=== PATIENT | male | born 1960 | race Caucasian/White ===

== ENCOUNTER 2019-01-27 12:18 | Inpatient (IN) | payer OTHER ==
[~2019-01-27] VITALS: Ht 182.9 cm; Wt 87.1 kg
[~2019-01-27 12:18] MED LIST: LEVAQUIN 750 M750 MG PO; MEDROLDOSEPACK PO; NOHOMEMEDICATIONS; VENTOLIN HFA 1818 GM INH
[2019-01-27 12:19] VITALS: BP 169/89
[2019-01-27] MEDS ORDERED: BAYER CHEWABLE81 MG PO (12:22)
[2019-01-27 12:38] LABS: ABSOLUTE EOSINOPHILS 0.1 thou/uL (0.0-0.7); ABSOLUTE LYMPHOCYTES 4.2 thou/uL (0.8-5.3); ABSOLUTE MONOCYTES 0.7 thou/uL (0.0-1.2); ABSOLUTE NEUTROPHILS 4.3 thou/uL (1.6-8.1); BASOPHILS 0.3 %; EOSINOPHILS 1.2 %; HEMATOCRIT 38.2 % (42.0-52.0); LYMPHOCYTES 44.6 %; MCH 28.2 pg (26.0-34.0); MCV 83.1 fL (80.0-100.0); MONOCYTES 7.5 %; MPV 8.4 fl. (7.2-11.1); NUCLEATED RBCS 0 /100WBC; PLATELET COUNT* 161 thou/uL (150-400); POLYS 46.4 %; WBC 9.4 thou/uL (4.0-11.0)
[2019-01-27 12:58] LABS: ANION GAP 11 mmol/L (7-16); BUN 17 mg/dL (7-18); CALCIUM 9.5 mg/dL (8.5-10.1); CHLORIDE 103 mmol/L (98-107); CO2 25 mmol/L (21-32); CREATININE 0.8 mg/dL (0.6-1.3); GLUCOSE 147 mg/dL (70-99); POTASSIUM 3.9 mmol/L (3.5-5.1); SODIUM 139 mmol/L (136-145); TROPONIN-I LEVEL <0.06 ng/mL (<0.06)
[2019-01-27 12:59] LABS: ALBUMIN 3.9 g/dL (3.4-5.0); ALKALINE PHOSPHATASE 164 U/L (46-116); LIPASE 107 U/L (73-393); MAGNESIUM 1.7 mg/dL (1.8-2.4); NT-PRO BRAIN NAT PEPTIDE 241 pg/mL (<300); SGOT 31 U/L (15-37); SGPT 32 U/L (30-65); TOTAL BILIRUBIN 1.5 mg/dL (<0.1-1.0); TOTAL PROTEIN 7.6 g/dL (6.4-8.2)
--- NOTE | 2019-01-27 13:00 | NUR ---
THIS NURSE RECEIVED REPORT FROM SHANNAN ERICKSON. THIS NURSE TO ASSUME PT CARE AT THIS TIME.
--- NOTE | 2019-01-27 13:17 | NUR ---
DR. GARCIA AT BEDSIDE TALKING WITH PT.
--- NOTE | 2019-01-27 14:01 | NUR ---
PT BACK FROM RADIOLOGY VIA STRETCHER BY [employer]. REATTACHED TO MONITORS.
--- NOTE | 2019-01-27 15:38 | NUR ---
REPORT GIVEN TO INPATIENT NURSE, PATRICIA, WHO IS TO ASSUME PT CARE. SHANNAN GOMEZ MADE AWARE THAT PT WAS IN US AND THIS NURSE WOULD TAKE PT TO INPATIENT ROOM WHEN PT GOT BACK FROM US. SHANNAN GOMEZ STATED UNDERSTANDING. PT LEFT ER WITH PT BELONGINGS. NURSE CALLED PT AND NOTIFIED HER OF PT ROOM NUMBER.
[2019-01-27 15:41] VITALS: BP 130/80
[2019-01-27 16:33] VITALS: BP 137/79
--- NOTE | 2019-01-27 16:48 | NUR ---
PT ADMITTED TO UNIT AROUND 1600 PT IS ALERT AND ORIENTED X 4 PT DENIES PAIN OR SOA ON RA, PT STATES HEART PALPATATIONS ARE LESS FREQUENT, PT IS UP AD BETZY PT IS NOT A FALL RISK, PT IS AFIB ON THE MONITOR, PT WILL BE NPO AT MIDNIGHT [facility]PR CARDIOLOGY CONSULT, WILL CONTINUE TO MONITOR
[2019-01-27 18:22] VITALS: BP 128/76
[2019-01-27 20:00] VITALS: BP 122/74
[2019-01-28] VITALS: BP 110/71; BP 99/66
[2019-01-28 04:00] VITALS: BP 112/56
[2019-01-28 05:16] LABS: ABSOLUTE EOSINOPHILS 0.1 thou/uL (0.0-0.7); ABSOLUTE LYMPHOCYTES 2.8 thou/uL (0.8-5.3); ABSOLUTE MONOCYTES 0.7 thou/uL (0.0-1.2); ABSOLUTE NEUTROPHILS 2.9 thou/uL (1.6-8.1); BASOPHILS 0.3 %; EOSINOPHILS 1.9 %; HEMATOCRIT 41.1 % (42.0-52.0); HEMOGLOBIN 14.1 gm/dL (14.0-18.0); LYMPHOCYTES 42.6 %; MCH 28.2 pg (26.0-34.0); MCHC 34.2 g/dL (28.0-37.0); MCV 82.4 fL (80.0-100.0); MONOCYTES 11.2 %; NUCLEATED RBCS 0 /100WBC; PLATELET COUNT* 163 thou/uL (150-400); RBC 4.99 mil/uL (4.50-6.00); RDW-CV 14.1 % (10.5-14.5); WBC 6.5 thou/uL (4.0-11.0)
[2019-01-28 05:21] LABS: CALCIUM 8.7 mg/dL (8.5-10.1); CREATININE 0.5 mg/dL (0.6-1.3); POTASSIUM 3.8 mmol/L (3.5-5.1)
--- NOTE | 2019-01-28 05:25 | NUR ---
ASSUMED CARE OF PT AFTER REPORT AT 1930. PT A&OX4. VSS. PHYSICAL ASSESSMENT COMPLETED AND CHARTED. PT ON RA. PT TRACING AFIB ON TELE. MAINTAINED ON CARDIZEM DRIP AT 5MG/HR. PT UPADLIB TO RESTROOM. PT COMPLAINED OF HEADACHE- PAIN MEDS GIVEN PER NOV. PT RESTED WELL ON BED. HOURLY ROUNDING OBSERVED. CALL LIGHT WITHIN REACH.
[2019-01-28 08:00] VITALS: BP 124/76
--- NOTE | 2019-01-28 10:18 | NUR ---
ASSUMED PT CARE AT 0700 PT IS ALERT AND ORIENTED X 4 PT DENIES PAIN OR SOA ON RA, PT IS UP AD BETZY PT IS NOT A FALL RISK, PT IS AFIB ON THE MONITOR, PT HEART RATE THIS AM DROPPED TO 40'S STOPPED CARDIZEM DRIP PT HEART RATE IMPROVED, PT IS CLEARED TO DISCHARGE AFTER LUNCH PER CARDIOLOGY WHO WANTS PT TO HAVE A DOSE PO CARDIAZEM MOW MONITOR HEART RATE, WILL CONTINUE TO MONITOR
[2019-01-28] MEDS ORDERED: TYLENOL325 MG PO (10:30)
[2019-01-28 10:31] VITALS: BP 124/76
[2019-01-28] MEDS ORDERED: CARDIZEM CD120 MG PO (10:31)
[2019-01-28 11:29] VITALS: BP 124/76
--- NOTE | 2019-01-28 11:38 | NUR ---
PT ARRIVED ON THE UNIT FROM ER AT 11:00. ASSESSED PT AND DOCUMENTED. PT IS ON CARDIAC MONITER TRACING SR 1ST DEGREE BBB HR 63. HE IS A&O WITH NO C/O PAIN. VSS WNL. PT IS AFEBRILE. PT IS NPO PENDING CARDIO CONSULT. PT IS UP WITH A CANE AND STEADY. PT RIGHTS AND FALL AGREEMENT SIGNED. PT ON FALL PRECAUTIONS PER FACILITY PROTOCOL. HE IS WEARING SCDS. PT IS ON 2L OF 02 SAT 95%. LUNGS ARE CLEAR. BED IS IN LOW POSITION CALL LIGHT IS IN REACH. WM.
[2019-01-28 12:12] VITALS: BP 123/74
--- NOTE | 2019-01-28 13:41 | EKG ---
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
--- NOTE | 2019-01-28 13:46 | EKG ---
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
--- NOTE | 2019-01-29 14:38 | CON ---
[address] [address] CONSULTATION Name: ЕКАТЕРИНА CANALES Room: [address] IN ..#: [id number] Admission: 01/27/19 Attend Phys: Donnell Payan MD Discharge: 01/28/19 Date of : 60 Report #: [id number] THIS REPORT FOR: //name// CC: Donnell Payan [facility] physician/PCP DATE OF SERVICE: 01/27/2019 CARDIOLOGY CONSULTATION HISTORY OF PRESENT ILLNESS: The patient is a 58-year-old white male who I was asked to see in the hospital today after he was noted to be in atrial fibrillation. The patient has no previous history of heart disease. He does note that he had a stress test in the past. Every so often, he has episodes that he feels lightheaded, diaphoretic and short of breath, this will resolve. However, today, he was at home when he felt his heart beating irregularly. He felt somewhat short of breath, diaphoretic and lightheaded. He came to the hospital and found to be in atrial fibrillation. He was started on IV Cardizem and I was asked to see him for further evaluation and treatment. He denies a history of a heart murmur. Denies exertional chest pain, shortness of breath or syncope. He has had no peripheral edema. He denied any bleeding problem. PAST MEDICAL HISTORY: He has had previous surgery on his leg following an accident. MEDICATIONS: He is currently on no medications. ALLERGIES: He has no known drug allergies. FAMILY HISTORY: His father had atrial fibrillation and a pacemaker. SOCIAL HISTORY: He is . He and his live in [place]. He works at an [employer] shop. He quit smoking in the past. He does have several drinks occasionally including 4 last night of whiskey. No illicit drug use. REVIEW OF SYSTEMS: He has had no history of stroke, asthma, peptic ulcer disease, liver disease, kidney disease, cancer, psychiatric illness. He does wear glasses. PHYSICAL EXAMINATION: GENERAL: A middle-aged male, lying in bed, appeared in no distress. VITAL SIGNS: Blood pressure is 130/70, pulse is 100 and irregular. He is afebrile. HEENT: He is anicteric. Conjunctivae pink. Mucous members moist. NECK: Neck veins do not appear distended. No carotid bruits. Neck supple. CHEST: [place] [address] CONSULTATION Name: ЕКАТЕРИНА CANALES Jesus Alberto Room: [address]#: [id number] Admission: 01/27/19 Attend Phys: Donnell Payan MD Discharge: 01/28/19 Date of : 60 Report #: [id number] CARDIOVASCULAR: Irregular rhythm. ABDOMEN: Soft. EXTREMITIES: Had no edema. Posterior tibial pulse 2+ bilaterally. SKIN: Warm, dry. NEUROLOGIC: Nonfocal. ECG showed atrial fibrillation with an increased ventricular response rate. His workup in the Emergency Room today, he had a portable chest x-ray that showed normal heart size and clear lung quiroz. LABORATORY DATA: Today, sodium 139, creatinine 0.8, glucose 147, bilirubin 1.5, alkaline phosphatase 164, albumin 3.9. Troponin 0.06. BNP 241. White blood cell count 9.4, hemoglobin 13. IMPRESSION AND RECOMMENDATIONS: 1. Atrial fibrillation. Recommend echocardiogram and thyroid function studies. I will recommend starting flecainide. If he fails to convert, he may require cardioversion. The patient appears to have a CHADS score of 0, so I would not recommend anticoagulation at this time. 2. Elevated blood sugar. I would rule out diabetes. <ELECTRONICALLY SIGNED> By: Vic Metcalf MD, FACC 01/29/19 1438 1327 0651Vic Metcalf MD, FACC /nt
== END 2019-01-28 13:20 | disposition home or self-care (01) | DRG 310 ==
LOC: M.ERS 12:18 → M.TBA-ER 13:25 → M.2W 16:22
PROVIDERS: Personal Emergency Response Attendant; ADMIT Internal Medicine
DX: I48.91 Unspecified atrial fibrillation (principal); R73.9 Hyperglycemia, unspecified; E05.90 Thyrotoxicosis, unspecified without thyrotoxic crisis or storm; Z79.899 Other long term (current) drug therapy; Z82.49 Family history of ischemic heart disease and other diseases of the circulatory system

== ENCOUNTER 2019-08-20 13:29 | Emergency (ER) | payer OTHER ==
[~2019-08-20] VITALS: Ht 182.9 cm; Wt 88.5 kg
[~2019-08-20 13:29] MED LIST changes: +BAYER CHEWABLE81 MG PO; +CARDIZEM CD120 MG PO; +TYLENOL325 MG PO
[2019-08-20] MEDS ORDERED: HYPERTHYROID MED (13:48)
[2019-08-20 15:59] LABS: URINE BILIRUBIN NEGATIVE (Negative); URINE BLOOD NEGATIVE (Negative); URINE CLARITY CLEAR; URINE COLOR YELLOW; URINE GLUCOSE-RANDOM NEGATIVE (Negative); URINE KETONES NEGATIVE (Negative); URINE LEUKOCYTES-REFLEX NEGATIVE (Negative); URINE NITRITE-REFLEX NEGATIVE (Negative); URINE PROTEIN NEGATIVE (Negative); URINE SPECIFIC GRAVITY 1.015 (1.005-1.030); URINE UROBILINOGEN 0.2 E.U./dl (0.2-1.0)
[2019-08-20] MEDS ORDERED: NORCO 5-325 TA1 EAC1 PO (16:19)
[2019-08-20] MEDS ORDERED: ZANAFLEX4 MG PO (16:19)
[2019-08-20] MEDS ORDERED: NABUMETONE 750750 M1 PO (16:19)
[2019-08-20] MEDS ORDERED: MEDROLDOSEPACK PO (16:19)
[2019-08-20 16:51] VITALS: BP 109/72
== END 2019-08-20 16:50 | disposition home or self-care (01) ==
LOC: M.ERS 13:29
PROVIDERS: Nurse Practitioner Family
DX: M54.41 Lumbago with sciatica, right side (principal); M54.42 Lumbago with sciatica, left side; I48.91 Unspecified atrial fibrillation

== ENCOUNTER 2021-04-23 16:25 | Inpatient (IN) | payer OTHER ==
[~2021-04-23] VITALS: Ht 185.4 cm; Wt 85.9 kg
[~2021-04-23 16:25] MED LIST changes: +HYPERTHYROID MED; +NABUMETONE 750750 M1 PO; +NORCO 5-325 TA1 EAC1 PO; +ZANAFLEX4 MG PO
[2021-04-23 16:42] VITALS: BP 138/76
[2021-04-23 17:27] LABS: ABSOLUTE LYMPHOCYTES 0.6 thou/uL (0.8-5.3); ABSOLUTE MONOCYTES 0.5 thou/uL (0.0-1.2); ABSOLUTE NEUTROPHILS 4.6 thou/uL (1.6-8.1); BASOPHILS 0.2 %; EOSINOPHILS 0.1 %; HEMATOCRIT 45.7 % (42.0-52.0); HEMOGLOBIN 16.3 gm/dL (14.0-18.0); LYMPHOCYTES 10.5 %; MCH 30.9 pg (26.0-34.0); MCHC 35.8 g/dL (28.0-37.0); MCV 86.2 fL (80.0-100.0); MONOCYTES 8.2 %; MPV 6.8 fl. (7.2-11.1); NUCLEATED RBCS 0 /100WBC; PLATELET COUNT* 327 thou/uL (150-400); RBC 5.29 mil/uL (4.50-6.00); RDW-CV 12.9 % (10.5-14.5); WBC 5.7 thou/uL (4.0-11.0)
[2021-04-23 17:35] LABS: CALCIUM 8.7 mg/dL (8.5-10.1); CREATININE 0.8 mg/dL (0.6-1.3); POTASSIUM 4.3 mmol/L (3.5-5.1)
[2021-04-23 17:40] LABS: TOTAL BILIRUBIN 1.2 mg/dL (<0.1-1.0); TOTAL PROTEIN 7.7 g/dL (6.4-8.2)
[2021-04-24 01:30] VITALS: BP 115/74
[2021-04-24] MEDS ORDERED: TAPAZOLE5 MG PO (02:07)
[2021-04-24 02:09] VITALS: BP 113/74
[2021-04-24 04:16] VITALS: BP 115/67
--- NOTE | 2021-04-24 05:41 | NUR ---
PT ADMITTED TO ROOM 108 DURING THIS SHIFT; VSS, 8L O2, A+OX4, UP ADLIB BUT VERY SOA WITH EXERTION, SINUS RHYTHM, ON TELE. HE IS ABLE TO COMMUNICATE HIS NEEDS TO STAFF EFFECTIVELY. HE HAS DENIED THE NEED FOR PAIN MEDICATION UP TO THIS TIME. PULMONOLOGY CONSULTED. PT NOW ON NRB MASK AT 15L O2; TOLERATING WELL, SO FAR.
--- NOTE | 2021-04-24 10:37 | NUR ---
The patient requested to use his own supply of medication. MD contacted with his request.
--- NOTE | 2021-04-24 10:48 | NUR ---
kaye spk with pt via telephone d/t covid isolation precautions. pt lives home with his . pt is also sick and on her way to [facility]. pt asked that he and his could share rooms if she is admitted. pt is active and independent. pt uses no dmes. pt denies hx with hh or snf. pt's pcp is Matias Louise.
[2021-04-24 12:00] VITALS: BP 128/70
--- NOTE | 2021-04-24 14:48 | 2DMMODE ---
[place] [address] 2 D/M-MODE ECHOCARDIOGRAM Name: ЕКАТЕРИНА CANALES Room: [address] IN .R.#: [id number] Admission: 04/23/21 Attend Phys: Yang Castañeda Discharge: Date of : 60 Date of Service: 04/24/21 1447 Report #: [id number] THIS REPORT FOR: cc: FAM - No family physician/PCP FAM - No family physician/PCP Nestor Jones MD [facility] ~ APPROVED REPORT Study performed: 04/24/2021 13:48:01 EXAM: Comprehensive 2D, Doppler, and color-flow Echocardiogram Patient Location: Bedside BSA: 2.08 HR: 76 bpm BP: 128/70 mmHg Other Information Study Quality: Adequate Indications Dyspnea Covid Positive 2D Dimensions IVSd: 13.02 (7-11mm) LVOT Diam: 19.19 (18-24mm) LVDd: 48.84 mm PWd: 11.06 (7-11mm) Ascending Ao: 44.96 (22-36mm) LVDs: 28.05 (25-40mm) Aortic Root: 31.39 mm Volumes Left Atrial Volume (Systole) LA ESV Index: 29.00 mL/m2 Aortic Valve AoV Peak Adam.: 1.29 m/s AO Peak Gr.: 6.61 mmHg LVOT Max P.51 mmHg AO Mean Gr.: 3.44 mmHg LVOT Mean P.57 mmHg LVOT Max V: 0.94 m/s AO V2 VTI: 25.36 cm LVOT Mean V: 0.56 m/s TIN (VTI): 2.00 cm2 LVOT V1 VTI: 17.54 [place] [address] 2 D/M-MODE ECHOCARDIOGRAM Name: ЕКАТЕРИНА CANALES Room: [address] IN ..#: [id number] Admission: 04/23/21 Attend Phys: Yang Castañeda Discharge: Date of : 60 Date of Service: 04/24/21 1447 Report #: [id number] E/A Ratio: 1.07 MV Decel. Time: 329.44 ms MV E Max Adam.: 0.51 m/s MV PHT: 95.54 ms MVA (PHT): 2.30 cm2 TDI E/Lateral E': 3.92 E/Medial E': 4.64 Medial E' Adam.: 0.11 m/s Lateral E' Adam.: 0.13 m/s Pulmonary Valve PV Peak Adam.: 0.84 m/s PV Peak Gr.: 2.80 mmHg Tricuspid Valve RAP Estimate: 5.00 mmHg TR Peak Gr.: 8.04 mmHg RVSP: 13.04 mmHg PA Pressure: 13.04 mmHg Left Ventricle The left ventricle is normal size. There is normal LV segmental wall motion. There is normal left ventricular wall thickness. Left ventricular systolic function is normal. The left ventricular ejection fraction is within the normal range. LVEF is 60%. The left ventricular diastolic function is normal. Right Ventricle The right ventricle is normal size. The right ventricular systolic function is normal. Atria The left atrium size is normal. The right atrium size is normal. Aortic Valve The aortic valve is normal in structure. Trace aortic regurgitation. There is no aortic valvular stenosis. Mitral Valve The mitral valve is normal in structure. Trace mitral regurgitation. No evidence of mitral valve stenosis. Tricuspid Valve The tricuspid valve is normal in structure. [place] [address] 2 D/M-MODE ECHOCARDIOGRAM Name: ЕКАТЕРИНА CANALES Room: [address]#: [id number] Admission: 04/23/21 Attend Phys: Yang Castañeda Discharge: Date of : 60 Date of Service: 04/24/21 1447 Report #: [id number] Pulmonic Valve The pulmonary valve is normal in structure. There is no pulmonic valvular regurgitation. Great Vessels The aortic root is normal in size. IVC is not visualized. Pericardium There is no pericardial effusion. <Conclusion> The left ventricle is normal size. Left ventricular wall thickness is normal Left ventricular systolic function is normal. The left ventricular ejection fraction is within the normal range. LVEF is 60%. The left ventricular diastolic function is normal. The left atrium size is normal. The aortic valve is normal in structure. Trace aortic regurgitation. There is no aortic valvular stenosis. The mitral valve is normal in structure. The tricuspid valve is normal in structure. There is no pericardial effusion. There is normal LV segmental wall motion. <ELECTRONICALLY SIGNED> By: Nestor Jones MD, [facility] 04/24/21 1447 1447 1447 Nestor Jones MD, FACC /INF
--- NOTE | 2021-04-24 15:09 | EKG ---
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
[2021-04-24 16:00] VITALS: BP 103/59
[2021-04-24 21:14] VITALS: BP 114/69
[2021-04-25] VITALS (7 sets, daily range): BP systolic 101–127; BP diastolic 54–78
--- NOTE | 2021-04-25 05:46 | NUR ---
PT IS ABLE TO COMMUNICATE HIS NEEDS TO STAFF EFFECTIVELY. CURRERNT PAIN MEDICATION REGIMEN HAS BEEN ADEQUATE FOR CONTROLLING HIS PAIN UP TO THIS TIME. HHC O2 MAINTIANED. PT VERY SOA WITH EXERTION. HIS IS IN ROOM 115 AT THIS TIME.
[2021-04-25 06:16] LABS: CREATININE 0.8 mg/dL (0.6-1.3)
--- NOTE | 2021-04-25 20:05 | NUR ---
patient resting in room, in bed, call light within reach, A&O x 4, meds given per MAR, patient on O2 per respiratory, report given to shift leader nurse.
[2021-04-26] VITALS: BP 112/52
--- NOTE | 2021-04-26 03:10 | NUR ---
ASSUMED CARE OF PT AT 1900. PT IS ALERT AND ORIENTED. VSS. PERRLA. PT IS ON HEATED HIGH FLOW CANNULA. PT IS VERY HESITANT TO TAKE MEDICINE. PT IS IN A FIB ON THE TELEMETRY. PT IS RESTING COMFORTABLY IN BED. RESPIRATIONS ARE EVEN AND NONLABORED. WILL CONTINUE TO MONITOR PT.
[2021-04-26 04:00] VITALS: BP 108/62
--- NOTE | 2021-04-26 04:15 | NUR ---
PT IS BACK IN SINUS RYTHM
[2021-04-26 08:00] VITALS: BP 121/66
[2021-04-26 12:00] VITALS: BP 119/78
[2021-04-26 16:00] VITALS: BP 126/63
[2021-04-26 20:00] VITALS: BP 124/68
[2021-04-27 00:33] VITALS: BP 105/47
--- NOTE | 2021-04-27 04:11 | NUR ---
ASSUMED CARE OF PT AT 1900. PT IS ALERT AND ORIENTED. VSS. PERRLA. NO COMPLAINTS OF PAIN. UP WITH STAND BY ASSIST. PT IS ON A 100 PERCENT FIO2. PT IS SLEEPING QUIETLY IN BED. RESPIRATIONS ARE EVEN AND NONLABORED. WILL CONTINUE TO MONITOR PT.
[2021-04-27 05:45] VITALS: BP 101/47
[2021-04-27 08:36] LABS: CALCIUM 8.6 mg/dL (8.5-10.1); CREATININE 0.8 mg/dL (0.6-1.3); POTASSIUM 4.5 mmol/L (3.5-5.1)
--- NOTE | 2021-04-27 10:26 | NUR ---
barriers to d/c; pt remains on hi flow. fyi: pt's spouse admitted in room 115
[2021-04-27 12:20] VITALS: BP 136/77
[2021-04-27 15:52] VITALS: BP 121/66
[2021-04-27 20:00] VITALS: BP 119/67
[2021-04-28 00:27] VITALS: BP 112/58
--- NOTE | 2021-04-28 03:43 | NUR ---
ASSUMED CARE OF PT AT 1900. PT IS ALERT AND ORIENTED. VSS. PERRLA. NO COMPLAINTS OF PAIN. PT IS IN SINUS RYTHM ON THE TELEMETRY. PT IS RESTING COMFORTABLY IN BED. RESPIRATIONS ARE EVEN AND NONLABORED. WILL CONTINUE TO MONITOR PT.
[2021-04-28 05:43] LABS: CALCIUM 8.2 mg/dL (8.5-10.1); CREATININE 0.7 mg/dL (0.6-1.3); POTASSIUM 4.5 mmol/L (3.5-5.1)
[2021-04-28 05:46] VITALS: BP 125/74
[2021-04-28 08:00] VITALS: BP 104/66
--- NOTE | 2021-04-28 10:13 | NUR ---
barries to dc: 50L fiow2 of 85%, cont with remdesivir and abx and steriods. pulm following.
[2021-04-28 12:00] VITALS: BP 120/63
[2021-04-28 15:28] VITALS: BP 130/68
[2021-04-28 20:35] VITALS: BP 121/72
--- NOTE | 2021-04-28 23:39 | NUR ---
ASSUMED CARE OF PT AT 1900. PT IS ALERT AND ORIENTED. VSS. PERRLA. NO COMPLAINTS OF PAIN. PT IS ON 15 LITERS HIGH FLOW NASAL CANNULA. PT IS IN SINUS RYTHM ON THE TELEMETRY. PT IS RESTING COMFORTABLY IN BED. RESPIRATIONS ARE EVEN AND NONLABORED. WILL CONTINUE TO MONITOR PT.
[2021-04-29] VITALS (7 sets, daily range): BP systolic 105–137; BP diastolic 56–75
[2021-04-29 05:37] LABS: ABSOLUTE LYMPHOCYTES 0.8 thou/uL (0.8-5.3); ABSOLUTE MONOCYTES 0.7 thou/uL (0.0-1.2); ABSOLUTE NEUTROPHILS 8.6 thou/uL (1.6-8.1); BASOPHILS 0.2 %; HEMATOCRIT 40.9 % (42.0-52.0); HEMOGLOBIN 14.3 gm/dL (14.0-18.0); LYMPHOCYTES 7.7 %; MCHC 34.9 g/dL (28.0-37.0); MCV 85.9 fL (80.0-100.0); MONOCYTES 6.5 %; MPV 6.9 fl. (7.2-11.1); NUCLEATED RBCS 0 /100WBC; PLATELET COUNT* 610 thou/uL (150-400); POLYS 85.6 %; RBC 4.76 mil/uL (4.50-6.00); RDW-CV 12.7 % (10.5-14.5); WBC 10.1 thou/uL (4.0-11.0)
[2021-04-29 05:50] LABS: ALBUMIN 2.8 g/dL (3.4-5.0); CALCIUM 8.3 mg/dL (8.5-10.1); CREATININE 0.8 mg/dL (0.6-1.3); MAGNESIUM 2.5 mg/dL (1.8-2.4); POTASSIUM 4.5 mmol/L (3.5-5.1); TOTAL BILIRUBIN 0.6 mg/dL (<0.1-1.0); TOTAL PROTEIN 6.4 g/dL (6.4-8.2)
--- NOTE | 2021-04-30 01:03 | NUR ---
ASSUMED CARE OF PT AT 1900. PT IS ALERT AND ORIENTED. VSS. PERRLA. NO COMPLAINTS OFPAIN. PT IS ON 13 LITERS NASAL CANNULA. PT IS IN SINUS RYTHM ON THE TELEMETRY. PT IS RESTING COMFORTABLY IN BED. RESPIRATIONS ARE EVEN AND NONLABORED. WILL CONTINUE TO MONITOR PT.
[2021-04-30 03:53] VITALS: BP 103/49
[2021-04-30 08:00] VITALS: BP 111/74
[2021-04-30 08:11] LABS: CALCIUM 8.4 mg/dL (8.5-10.1); CREATININE 0.9 mg/dL (0.6-1.3); POTASSIUM 5.3 mmol/L (3.5-5.1)
[2021-04-30 11:30] VITALS: BP 118/65
--- NOTE | 2021-04-30 14:29 | NUR ---
Nutrition: Pt admitted to COVID unit. Assessed for LOS. H/o COPD, new afib. Admit wt: 170#. CHO controlled diet. BG 200s, alb 2.8, prealb 34. Spoke with pt's RN. Pt is eating meals well. No nutrition concerns at this time. Low risk.
--- NOTE | 2021-04-30 15:18 | NUR ---
PLAN OF CARE: PT REMAINS ON 13L O2 AND 705 FIO2. CM D/C PLANNING NEEDS TBD. CM WILL REMAIN AVAILABLE TO ASSIST AND FOLLOW NEEDED.
[2021-04-30 15:56] VITALS: BP 117/66
--- NOTE | 2021-04-30 18:40 | NUR ---
ASSUMED CARE OF PT AROUND 1730 FROM NISSA Zhang PT. AOX4, SR ON MONITOR, DENIES PAIN OR DISCOMFORT, O2 11L PER NC, PT. IN CHAIR, HAVING DINNER. CALL LIGHT AND PERSONAL BELONGINGS PLACED WITHIN REACH. PT. IN STABLE CONDITION AT THIS TIME.
[2021-04-30 20:00] VITALS: BP 112/76
[2021-05-01 00:12] VITALS: BP 105/58
--- NOTE | 2021-05-01 03:51 | NUR ---
ASSUMED PT CARE AT APPROX. 1915. PT IS A/OX4. PT IS SR-SB ON SURVEY METHODOLOGIST. PT HAS ASYMPTOMATIC BRADYCARDIA. HR WHILE SLEEPING WAS IN THE 40'S. HR INCREASED ONCE PT WAS AWAKEN. PT IS ON 11L HFLNC. O2 SATS 93-98%. PT CONCERNED ABOUT "BLOOD SUGARS BEING HIGHER THAN NORMAL AND "CONCERNED ABOUT GOING HOME ON INSULIN." RN EDUCATED PT ABOUT STEROID MEDICATIONS CAUSING AN INCREASE IN BLOOD GLUCOSE LEVELS. PT REPORTED UNDERSTANDING. PT IS UP AD BETZY TO BSC. CALL LIGHT WITHIN REACH. ASSESSMENTS AND HOURLY ROUNDS COMPLETE CHARTED. PT CURRENTLY RESTING IN BED. WILL CONT. TO MONITOR.
[2021-05-01 04:14] VITALS: BP 110/70
[2021-05-01 05:58] LABS: HEMATOCRIT 45.5 % (42.0-52.0); HEMOGLOBIN 15.4 gm/dL (14.0-18.0); MCH 29.2 pg (26.0-34.0); MCHC 33.8 g/dL (28.0-37.0); MCV 86.3 fL (80.0-100.0); MPV 6.8 fl. (7.2-11.1); NUCLEATED RBCS 0 /100WBC; RBC 5.27 mil/uL (4.50-6.00); RDW-CV 13.1 % (10.5-14.5); WBC 9.7 thou/uL (4.0-11.0)
[2021-05-01 06:04] LABS: PLATELET COUNT* 529 thou/uL (150-400)
[2021-05-01 07:31] LABS: ALBUMIN 3.2 g/dL (3.4-5.0); CALCIUM 8.3 mg/dL (8.5-10.1); CREATININE 0.8 mg/dL (0.6-1.3); MAGNESIUM 2.5 mg/dL (1.8-2.4); POTASSIUM 4.6 mmol/L (3.5-5.1); TOTAL BILIRUBIN 1.1 mg/dL (<0.1-1.0); TOTAL PROTEIN 6.6 g/dL (6.4-8.2)
[2021-05-01 08:06] VITALS: BP 107/73
[2021-05-01 08:25] LABS: ABSOLUTE LYMPHOCYTES 1.1 thou/uL (0.8-5.3); ABSOLUTE MONOCYTES 0.1 thou/uL (0.0-1.2); ABSOLUTE NEUTROPHILS 8.5 thou/uL (1.6-8.1)
[2021-05-01 08:26] LABS: PLATELET ESTIMATE INCREASED
[2021-05-01 20:00] VITALS: BP 112/75
--- NOTE | 2021-05-01 20:05 | NUR ---
PT ALERT AND ORIENTEDX4, TITRATED TO 9L HFNC THIS MORNING AND HAS TOLERATED IT WELL. PATIENT HAS DENIED HAVING ANY PAIN OR DISCOMFORT THIS SHIFT.
[2021-05-02] VITALS: BP 104/51
[2021-05-02 04:55] VITALS: BP 98/51
--- NOTE | 2021-05-02 05:20 | NUR ---
ASSUMED PT CARE AT APPROX. 1915. PT IS A/OX4. PT IS SR-SB ON CERAMICS TECHNICIAN. PT HAS ASYMPTOMATIC BRADYCARDIA. HR WHILE SLEEPING WAS IN THE 40'S. HR INCREASED ONCE PT WAS AWAKEN. PT O2 TITRATED TO 7L HFLNC. O2 SATS 93-98%. PT CONCERNED ABOUT STEROIDS BEING DECREASED. PT IS UP AD BETZY TO BSC. PT DENIES C/O PAIN. CALL LIGHT WITHIN REACH. ASSESSMENTS AND HOURLY ROUNDS COMPLETE CHARTED. PT CURRENTLY RESTING IN BED. WILL CONT. TO MONITOR.
[2021-05-02 06:33] LABS: ABSOLUTE LYMPHOCYTES 0.9 thou/uL (0.8-5.3); ABSOLUTE MONOCYTES 0.5 thou/uL (0.0-1.2); ABSOLUTE NEUTROPHILS 8.2 thou/uL (1.6-8.1); BASOPHILS 0.4 %; EOSINOPHILS 0.1 %; HEMATOCRIT 44.2 % (42.0-52.0); HEMOGLOBIN 14.9 gm/dL (14.0-18.0); LYMPHOCYTES 9.1 %; MCH 29.1 pg (26.0-34.0); MCHC 33.8 g/dL (28.0-37.0); MCV 86.1 fL (80.0-100.0); MONOCYTES 5.4 %; MPV 7.3 fl. (7.2-11.1); NUCLEATED RBCS 0 /100WBC; PLATELET COUNT* 506 thou/uL (150-400); RBC 5.13 mil/uL (4.50-6.00); RDW-CV 12.7 % (10.5-14.5); WBC 9.6 thou/uL (4.0-11.0)
[2021-05-02 07:14] LABS: ALBUMIN 2.9 g/dL (3.4-5.0); CREATININE 0.7 mg/dL (0.6-1.3); MAGNESIUM 2.4 mg/dL (1.8-2.4); POTASSIUM 4.6 mmol/L (3.5-5.1); TOTAL BILIRUBIN 1.2 mg/dL (<0.1-1.0); TOTAL PROTEIN 6.1 g/dL (6.4-8.2)
[2021-05-02 08:11] VITALS: BP 101/69
[2021-05-02 11:49] VITALS: BP 111/64
--- NOTE | 2021-05-02 15:38 | NUR ---
PT A/OX4, SR-SB ON COMPUTER SYSTEMS ADMINISTRATOR, IS CURRENTLY ON 7L HFNC TOLERATING WELL. STILL RECEIVING IV ABT AND IV STEROIDS ORDERED. PT WASHED HIS HAIR IN THE SHOWER AND GOT CLEANED UP. FLONASE ORDERD BY BECAUSE PT C/O STUFFY NOSE MAKING IT HARD TO BREATH.
[2021-05-02 16:49] VITALS: BP 111/55
[2021-05-02 20:00] VITALS: BP 113/75
[2021-05-03 04:00] VITALS: BP 107/66
[2021-05-03 06:18] LABS: HEMATOCRIT 43.7 % (42.0-52.0); HEMOGLOBIN 14.9 gm/dL (14.0-18.0); MCV 85.3 fL (80.0-100.0); MPV 7.1 fl. (7.2-11.1); RBC 5.13 mil/uL (4.50-6.00); WBC 11.7 thou/uL (4.0-11.0)
[2021-05-03 06:19] LABS: CREATININE 0.7 mg/dL (0.6-1.3); POTASSIUM 4.4 mmol/L (3.5-5.1)
[2021-05-03 07:24] VITALS: BP 107/52
[2021-05-03 11:54] VITALS: BP 106/64
[2021-05-03 16:25] VITALS: BP 110/56
--- NOTE | 2021-05-03 18:00 | NUR ---
PT IS A/OX4, SR-SB ON TELE, 4L O2 AT REST 8 WITH ACTIVITY. PT DID EX-OX AND REQUIRES 8L OF 02 TO AMBULATE. HES RECEIVED PRN TUMS X2 FOR INDIGESTIONS AND HE SAID THE IV LASIX MADE HIM FEEL FUNNY THIS MORNING, ORDERED ONE TIME DOSE OF MIDODRINE FOR ORTHOSTATIC HYPOTENSION.
[2021-05-03 20:00] VITALS: BP 117/65
[2021-05-04] VITALS (7 sets, daily range): BP systolic 104–117; BP diastolic 61–74
[2021-05-04 05:08] LABS: HEMATOCRIT 41.6 % (42.0-52.0); HEMOGLOBIN 14.6 gm/dL (14.0-18.0); MCH 29.8 pg (26.0-34.0); MCV 85.2 fL (80.0-100.0); MPV 7.2 fl. (7.2-11.1); RBC 4.88 mil/uL (4.50-6.00)
[2021-05-04 05:32] LABS: CALCIUM 8.2 mg/dL (8.5-10.1); CREATININE 0.8 mg/dL (0.6-1.3); POTASSIUM 4.4 mmol/L (3.5-5.1)
--- NOTE | 2021-05-04 05:47 | NUR ---
ASSUMED PT CARE AT APPROX 1930. PT IS AWAKE AND ORIENTED X4. PT IS NOT IN DISTRESS, NO DESATURATIONS NOTED ON 4L OF O2/NC. NO ACUTE CHANGES THIS SHIFT. CALL LIGHT WITHIN REACH. HOURLY ROUNDING DONE FOR PT SAFETY. HIGH FALL PRECAUTIONS IN PLACE. CALL LIGHT WITHIN REACH.
--- NOTE | 2021-05-04 14:00 | NUR ---
Pt to dc home today with home o2. CM awaiting a repeat ex ox to determine Pt's o2 needs. CM spoke with Brionna at [facility] and received cost of DME that Pt may need: Concentrator $110.07/month Nebulizer $50 Portable tank $21.55/ month/tank Pt states that he does have a credit card that he can use. Await testing.
[2021-05-04] MEDS ORDERED: IPRAT-ALBUT 0.5-3 ML INH (15:59)
--- NOTE | 2021-05-04 18:51 | NUR ---
PATIENT HAS REMAINED A&OX4, PLEASANT AND COOPERATIVE WITH CARES THIS SHIFT. MEDICATIONS ADMINISTERED ORDERED. DISCHARGE INSTRUCTIONS, INFORMATION SHEETS FOR DUONEBS GIVEN, WELL PATIENT'S 3 BOTTLES OF MEDICATIONS HE BROUGHT FROM HOME (DILTIAZEM, ASA, & METHIMAZOLE). PATIENT HAS OXYGEN TANK THAT WAS DELIVERED EARLIER, AND HE STATES OTHERS WELL CONCENTRATOR AND NEBULIZER HAVE ALREADY BEEN DELIVERED TO HIS HOME. IV'S REMOVED. PATIENT HAS CALLED HIS TO COME PICK HIM UP AND IS CURRENTLY WAITING ON HER. CALL LIGHT WITHIN REACH.
== END 2021-05-04 19:30 | disposition home or self-care (01) | DRG 177 ==
LOC: M.ERS 16:25 → M.TBA-ER 17:56 → M.ORTHSURG 04-24 01:05
PROVIDERS: Emergency Medicine; Family Medicine; Internal Medicine Critical Care Medicine; Pediatrics; ADMIT Internal Medicine; ATTEND Internal Medicine
PROC: 5A0945A Assistance with Respiratory Ventilation, 24-96 Consecutive Hours, High Flow/Velocity Cannula (ICD-10-PCS; principal; 2021-04-24)
PROC: XW033E5 Introduction of Remdesivir Anti-infective into Peripheral Vein, Percutaneous Approach, New Technology Group 5 (ICD-10-PCS; 2021-04-25)
PROC: XW033H5 Introduction of Tocilizumab into Peripheral Vein, Percutaneous Approach, New Technology Group 5 (ICD-10-PCS; 2021-04-25)
PROC: 5A09357 Assistance with Respiratory Ventilation, Less than 24 Consecutive Hours, Continuous Positive Airway Pressure (ICD-10-PCS; 2021-04-26)
PROC: 5A0945A Assistance with Respiratory Ventilation, 24-96 Consecutive Hours, High Flow/Velocity Cannula (ICD-10-PCS; 2021-04-26)
PROC: 5A0935A Assistance with Respiratory Ventilation, Less than 24 Consecutive Hours, High Flow/Velocity Cannula (ICD-10-PCS; 2021-04-29)
PROC: 5A0935A Assistance with Respiratory Ventilation, Less than 24 Consecutive Hours, High Flow/Velocity Cannula (ICD-10-PCS; 2021-04-30)
PROC: 5A0935A Assistance with Respiratory Ventilation, Less than 24 Consecutive Hours, High Flow/Velocity Cannula (ICD-10-PCS; 2021-05-01)
PROC: 5A0935A Assistance with Respiratory Ventilation, Less than 24 Consecutive Hours, High Flow/Velocity Cannula (ICD-10-PCS; 2021-05-02)
PROC: 5A0935A Assistance with Respiratory Ventilation, Less than 24 Consecutive Hours, High Flow/Velocity Cannula (ICD-10-PCS; 2021-05-03)
DX: U07.1 COVID-19 (principal); J96.01 Acute respiratory failure with hypoxia; J12.82 Pneumonia due to coronavirus disease 2019; J44.0 Chronic obstructive pulmonary disease with (acute) lower respiratory infection; E87.1 Hypo-osmolality and hyponatremia; I48.20 Chronic atrial fibrillation, unspecified; D68.59 Other primary thrombophilia; I48.91 Unspecified atrial fibrillation; E03.9 Hypothyroidism, unspecified; F17.210 Nicotine dependence, cigarettes, uncomplicated; I48.0 Paroxysmal atrial fibrillation; R73.9 Hyperglycemia, unspecified; E87.5 Hyperkalemia; Z79.899 Other long term (current) drug therapy; Z79.82 Long term (current) use of aspirin